=== PATIENT | female | born 1965 | race Caucasian/White ===

== ENCOUNTER 2022-07-31 21:13 | Emergency (ER) | payer SELFPAY ==
[~2022-07-31] VITALS: Ht 165.1 cm; Wt 54.0 kg
[2022-07-31 21:13] VITALS: BP 151/88
[2022-07-31 22:19] LABS: Albumin 3.8 g/dL (3.4-5.0); Anion Gap 7 (5-15); Blood Alcohol < 3.0 mg/dL (0-5); Blood Urea Nitrogen 14 mg/dL (7-18); Calcium 9.1 mg/dL (8.5-10.1); Carbon Dioxide 26 mmol/L (21-32); Chloride 94 mmol/L (98-107); Glucose 110 mg/dL (74-106); Potassium 4.4 mmol/L (3.5-5.1); Salicylate 2.6 mg/dL (2.8-20.0); Sodium 127 mmol/L (136-145)
[2022-07-31 22:21] LABS: Eosinophils # (auto) 0 10 ^3/uL (0-0.8); Hemoglobin 13.8 g/dL (12.2-16.2); Monocytes # (auto) 0.7 10 ^3/uL (0-1.3); Monocytes % (auto) 5.8 % (0.0-12.0); Neutrophils % (auto) 80.7 % (37.0-80.0)
[2022-07-31 22:22] LABS: Alanine Aminotransferase 29 U/L (13-56); Alkaline Phosphatase 102 U/L (45-117); Aspartate Aminotransferase 19 U/L (15-37); BUN/Creatinine Ratio 32.6; Bilirubin, Total 0.4 mg/dL (0.2-1.0); GFR African American 195 mL/min; GFR Non-African American 161 mL/min; Total Protein 7.6 g/dL (6.4-8.2)
[2022-07-31 22:23] LABS: Basophils # (auto) 0 10 ^3/uL (0-0.2); Basophils % (auto) 0.3 % (0.0-2.0); Eosinophils % (auto) 0.2 % (0.0-7.0); Hematocrit 40.5 % (36.0-46.0); Lymphocytes # (auto) 1.7 10 ^3/uL (0.4-5.4); Mean Corpuscular Hemoglobin 30.6 pg (28.0-32.0); Neutrophils # (auto) 10.3 10 ^3/uL (1.6-8.6); Nucleated Red Blood Cells % 0.1 %; Red Cell Distribution Width 14.3 % (11.8-14.3); White Blood Cell 12.7 10^3/uL (4.4-10.8)
[2022-07-31 22:32] LABS: Acetaminophen < 2.0 ug/mL (10-30)
== END 2022-08-01 01:38 | disposition left against medical advice (07) ==
LOC: ER 21:13 → EDBD 21:13 → ER 08-01 01:38
DX: I99.8 Other disorder of circulatory system (principal); F20.0 Paranoid schizophrenia; E87.1 Hypo-osmolality and hyponatremia; J90 Pleural effusion, not elsewhere classified; F39 Unspecified mood [affective] disorder; F28 Other psychotic disorder not due to a substance or known physiological condition
CPT/HCPCS: 36415; 70450; 71045; 80053; 80320; 80329; 84484; 85025; 93005